=== PATIENT | female | born 1990 | race Caucasian/White ===

== ENCOUNTER 2018-07-17 13:46 | Emergency (ER) | payer OTHER ==
--- NOTE | 2018-07-17 14:40 | ED ---
Lower Extremity - HPI Summary HPI Summary: Patient is a 20-year-old female who presents emergency department for ongoing pain to left ankle and foot after injury 2 days ago. Patient states she tripped and fell going down steps 2 days ago and was seen at [facility]. She states she had an x-ray which showed a fracture to the base of the fifth metatarsal. Patient was placed in a posterior splint and crutches and prescribed ibuprofen. She was discharged to follow-up with orthopedics. Patient states that yesterday she was walking up the steps without using crutches and bearing weight on to left foot and since has had worsening pain. Symptoms are mild in severity. Walking makes symptoms worse. Nothing makes symptoms better. Patient also notes her pain is not controlled with ibuprofen. - History of Current Complaint Chief Complaint: EDExtremityLower Stated Complaint: LEFT FOOT INJURY PER PT Time Seen by Provider: 07/17/18 14:37 Hx Obtained From: Patient Pain Intensity: 10 - Allergies/Home Medications Allergies/Adverse Reactions: Allergies Allergy/AdvReac Type Severity Reaction Status Date / Time tramadol Allergy Hives Verified 07/17/18 13:52 Home Medications: Home Medications Ibuprofen 800 mg PO TID PRN 07/17/18 [History Confirmed 07/17/18] PMH/Surg Hx/FS Hx/Imm Hx Previously Healthy: Yes Infectious Disease History: No Infectious Disease History: Denies: Traveled Outside the [place] in Last 30 Days - Family History Known Family History: Positive: Non-Contributory - Social History Occupation: Unemployed Lives: With Family Alcohol Use: None Substance Use Type: Reports: None Smoking Status (MU): Light Every Day Tobacco Smoker Review of Systems Positive: Other - Left foot and ankle pain and swelling Positive: Bruising Neurological: Negative Negative: Weakness, Paresthesia, Numbness All Other Systems Reviewed And Are Negative: Yes Physical Exam Triage Information Reviewed: Yes Vital Signs On Initial Exam: Initial Vitals Temp Pulse Resp BP Pulse Ox 99 F 97 16 121/69 99 07/17/18 13:49 07/17/18 13:49 07/17/18 13:49 07/17/18 13:49 07/17/18 13:49 Vital Signs Reviewed: Yes Appearance: Positive: Well-Appearing - Pt. sitting on bed in NAD. Posterior splint of left LE. Family present. Skin: Positive: Warm, Dry Head/Face: Positive: Normal Head/Face Inspection Eyes: Positive: Normal, EOMI, RAMSES Neck: Positive: Supple Musculoskeletal: Positive: Other - Mild edema and ecchymosis over lateral left foot and ankle. Good pedal pulse. Compartments are soft. No wounds. No proximal knee or tib/fib pain. Neurological: Positive: Normal, CN Intact II-III Psychiatric: Positive: Affect/Mood Appropriate Procedures - Splinting Left Lower Extremity Hand-Made Type: orthoglass Splint: posterior walking Pre-Proc Neuro Vasc Exam: normal Post-Proc Neuro Vasc Exam: normal Diagnostics - Vital Signs Vital Signs Temp Pulse Resp BP Pulse Ox 07/17/18 13:49 99 F 97 16 121/69 99 - Laboratory Lab Statement: Any lab studies that have been ordered have been reviewed, and results considered in the medical decision making process. Lower Extremity Course/Dx - Course Course Of Treatment: Pt. presenting with foot fx and increased pain after walking on it. Pt. requesting repeat xrays. Compartments are soft without signs of compartment syndrome. Foot xray per radiology: IMPRESSION: QUESTIONABLE NONDISPLACED FRACTURE INVOLVING THE POSTERIOR CORTEX THE DISTAL. LEFT FIBULA. IF IT WILL INFLUENCE THE PATIENT'S CLINICAL MANAGEMENT, SUPERIOR. CHARACTERIZATION COULD BE MADE WITH A CT. Patient with questionable ankle and fracture. Posterior splint reapplied. Will prescribe a few days of Lortab, THEATRICAL RIGGER reviewed and no red flags noted. Advised patient to use crutches and not bear weight on to left foot. To ice and elevate. To call the orthopedic clinic on Wednesday for close follow-up appointment for further evaluation. - Diagnoses Differential Diagnosis/HQI/PQRI: Positive: Contusion, Fracture (Closed), Sprain , Strain Provider Diagnoses: Ankle injury, Foot injury Discharge - Sign-Out/Discharge Documenting (check all that apply): Patient Departure Patient Received Moderate/Deep Sedation with Procedure: No - Discharge Plan Condition: Good Disposition: HOME Prescriptions: HYDROcodone/ACETAMIN 5-325 MG* [[place] 5-325 TAB*] 1 tab PO Q6H PRN #12 tab MDD 4 PRN Reason: Pain Patient Education Materials: Ankle Fracture (ED), Foot Fracture in Adults (ED) Referrals: Jacki Alan MD [Medical Doctor] - Lenny GARCIA,Ivan Carbajal [Primary Care Provider] - Additional Instructions: Call the orthopedic clinic tomorrow morning for an appointment Keep splint in pace Ice and elevate Use crutches Pain medication as directed Return to ER if symptoms change or worsen - Billing Disposition and Condition Condition: GOOD Disposition: Home
[2018-07-17] MEDS ORDERED: HYDROcodone/ACETAMIN 5-325 MG* 1 TAB PO ONE (14:54)
[2018-07-17 16:39] VITALS: BP 129/80
== END 2018-07-17 16:38 | disposition home or self-care (01) ==
LOC: ED 13:46
DX: S99.912A Unspecified injury of left ankle, initial encounter (principal); S99.922A Unspecified injury of left foot, initial encounter; F17.290 Nicotine dependence, other tobacco product, uncomplicated; W10.9XXA Fall (on) (from) unspecified stairs and steps, initial encounter
CPT/HCPCS: 99282